=== PATIENT | female | born 1945 | race African-American/Black ===

== ENCOUNTER 2020-05-09 11:53 | Emergency (ER) | payer MEDICARE ==
[~2020-05-09] VITALS: Ht 162.6 cm; Wt 64.0 kg
[2020-05-09] MEDS ORDERED: MORPHINE SULFATE 2 MG/ML CPJ (NOT FOR IM USE) IV ONE (12:30)
[2020-05-09 12:42] LABS: BASOPHILS % 0.7 % (0.0-2.0); EOSINOPHILS % 1.1 % (0.0-5.0); HEMATOCRIT. 40.5 % (36.0-48.0); LYMPHOCYTES % 27.6 % (20.0-50.0); MEAN CORPUSCULAR HEMOGLOBIN 30.1 pg (28.0-32.0); MEAN CORPUSCULAR VOLUME 93.7 fL (81.0-99.0); MONOCYTES % 7.5 % (2.0-8.0); NEUTROPHILS % 63.1 % (40.0-76.0); PLATELET 200 x1000/uL (130-400); RED BLOOD CELL COUNT 4.33 mill/uL (4.2-5.4); RED CELL DISTRIBUTION WIDTH 13.7 % (11.6-14.6)
[2020-05-09 12:50] LABS: CHLORIDE 109 mEq/L (98-107)
[2020-05-09 13:07] LABS: PROTHROMBIN TIME 10.6 sec (9.6-11.0)
[2020-05-09] MEDS ORDERED: SODIUM CHLORIDE 0.9% 1,000 ML IV ONE (13:45)
[2020-05-09] MEDS ORDERED: MORPHINE SULFATE 4 MG/ML CPJ (NOT FOR IM USE) IV ONE (15:45)
[2020-05-09 19:44] VITALS: BP 139/64
== END 2020-05-09 20:23 | disposition short-term general hospital (02) ==
LOC: ER 12:02 → CANBEDREQ 20:27
DX: S72.8X1A Other fracture of right femur, initial encounter for closed fracture (principal); I10 Essential (primary) hypertension; E11.9 Type 2 diabetes mellitus without complications; W01.0XXA Fall on same level from slipping, tripping and stumbling without subsequent striking against object, initial encounter; Y93.89 Activity, other specified; Y92.009 Unspecified place in unspecified non-institutional (private) residence as the place of occurrence of the external cause
CPT/HCPCS: 36415; 73502; 73560; 80053; 85025; 85610; 93005; 96361; 96374; 96376; 99285; J2270; J7030